=== PATIENT | female | born 1990 | race American Indian/Alaskan Native ===

== ENCOUNTER 2020-11-18 09:48 | Emergency (ER) | payer MEDICAID ==
[2020-11-18 10:36] VITALS: BP 111/71
--- NOTE | 2020-11-18 10:40 | Emergency Department Report ---
ED General Adult HPI - General Chief complaint: Extremity Injury, Upper Stated complaint: WORK INJURY/LT HAND Time Seen by Provider: 11/18/20 10:37 Source: patient Mode of arrival: Ambulatory Limitations: No Limitations - History of Present Illness Initial comments: 30-year-old -[place] female patient presents with complaints of left wrist and hand pain after a crush injury at work today. Patient states some heavy items fell off of the belt line onto her hand. She denies any numbness/tingling/weakness in her hand, but states she has some difficulty moving her thumb. Patient rates her pain as 8/10 in severity. -: Sudden Consistency: constant - Related Data Previous Rx's Medication Instructions Recorded Last Taken Type Naproxen 500 mg PO BID PRN #20 tablet 11/18/20 Unknown Rx ED Review of Systems ROS: Stated complaint: WORK INJURY/LT HAND Other details as noted in HPI Constitutional: denies: malaise Musculoskeletal: arthralgia. denies: joint swelling Skin: denies: change in color, pruritus Neurological: denies: numbness, paresthesias ED Past Medical Hx - Medications Home Medications: Home Medications Medication Instructions Recorded Confirmed Last Taken Type Naproxen 500 mg PO BID PRN #20 tablet 11/18/20 Unknown Rx ED Physical Exam - General Limitations: No Limitations General appearance: alert, in no apparent distress - Head Head exam: Present: atraumatic, normocephalic - Eye Eye exam: Present: normal appearance - Respiratory Respiratory exam: Absent: respiratory distress - Cardiovascular Cardiovascular Exam: Present: regular rate - Expanded Upper Extremity Exam Left Hand Wrist exam: Present: full ROM, tenderness (First MCP and radial head; + snuffbox tenderness). Absent: swelling, abrasion, laceration, ecchymosis, erythema Neuro motor exam: Present: thumb opposition intact Vascular: Present: normal capillary refill. Absent: vascular compromise, pulse deficit radial art, pulse deficit ulnar art - Neurological Exam Neurological exam: Present: alert, oriented X3 - Psychiatric Psychiatric exam: Present: normal affect, normal mood ED Course Vital Signs 11/18/20 10:36 Temperature 97.9 F Pulse Rate 65 Respiratory 18 Rate Blood Pressure 111/71 [Left] O2 Sat by Pulse 98 Oximetry ED Medical Decision Making - Radiology Data Radiology results: report reviewed Left wrist 3 views INDICATION: Injury FINDINGS: Carpal bone alignment appears normal. No acute fracture dislocation. No focal soft tissue swelling. IMPRESSION: No acute findings. Left hand 3 views INDICATION: Pain FINDINGS: MCP joints and IP joints appear normal. No acute fracture is identified. No focal soft tissue abnormality. Signer Name: Thee Anthony MD Signed: 11/18/2020 11:16 AM Workstation Name: [id number] - Medical Decision Making 30-year-old -[place] female patient presents with complaints of left wrist and hand pain after a crush injury at work today. Patient states some heavy items fell off of the belt line onto her hand. She denies any numbness/tingling/weakness in her hand, but states she has some difficulty moving her thumb. Patient rates her pain as 8/10 in severity. X-rays negative for any acute bony abnormalities. Will treat for wrist sprain with rice method and Velcro wrist splint and NSAIDs. Recommend follow-up with PCP and orthopedics as needed. Strict return precautions discussed in detail with patient who verbalized understanding. Critical care attestation.: If time is entered above; I have spent that time in minutes in the direct care of this critically ill patient, excluding procedure time. ED Disposition Clinical Impression: Left wrist injury Qualifiers: Encounter type: initial encounter Qualified Code(s): S69.92XA - Unspecified injury of left wrist, hand and finger(s), initial encounter Disposition: TO HOME OR SELFCARE Is pt being admited?: No Condition: Stable Instructions: Wrist Sprain, Adult Prescriptions: Naproxen 500 mg PO BID PRN #20 tablet PRN Reason: pain Referrals: [facility] [Provider Group] - 3-5 Days HANDY VIDES MD [Staff Physician] - as needed Forms: Work/School Release Form(ED)
--- NOTE | 2020-11-18 11:21 | XRay Report ---
Left wrist 3 views INDICATION: Injury FINDINGS: Carpal bone alignment appears normal. No acute fracture dislocation. No focal soft tissue s welling. IMPRESSION: No acute findings. Left hand 3 views INDICATION: Pain FINDINGS: MCP joints and IP joints appear normal. No acute fracture is identified. No focal soft tiss ue abnormality. Signer Name: Thee Anthony MD Signed: 11/18/2020 11:16 AM Workstation Name: [id number]
== END 2020-11-18 12:30 | disposition home or self-care (01) ==
LOC: ED 09:48
DX: S69.92XA Unspecified injury of left wrist, hand and finger(s), initial encounter (principal); Z79.899 Other long term (current) drug therapy; X50.0XXA Overexertion from strenuous movement or load, initial encounter; Y93.89 Activity, other specified; Y92.89 Other specified places as the place of occurrence of the external cause; Y99.0 Civilian activity done for income or pay

== ENCOUNTER 2021-03-08 14:40 | Emergency (ER) | payer OTHER, MEDICAID ==
[2021-03-08 15:06] VITALS: BP 117/55
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
[2021-03-08] MEDS ORDERED: BUTALB/ACETAMINOPHEN/CAFFEINE TAB PO ONE (15:12)
== END 2021-03-08 15:33 | disposition left against medical advice (07) ==
LOC: ED 14:40
DX: Z04.1 Encounter for examination and observation following transport accident (principal); Z53.21 Procedure and treatment not carried out due to patient leaving prior to being seen by health care provider; V87.7XXA Person injured in collision between other specified motor vehicles (traffic), initial encounter; Y93.89 Activity, other specified; Y92.488 Other paved roadways as the place of occurrence of the external cause; Y99.8 Other external cause status